=== PATIENT | male | born 1955 | race Caucasian/White ===

== ENCOUNTER 2020-09-22 07:38 | Day surgery (SDC) | payer MEDICARE, OTHER ==
[~2020-09-22] VITALS: Ht 167.6 cm; Wt 87.2 kg
[~2020-09-22 07:38] MED LIST: CHOLESTEROL MED; Flonase 0.05% N16 GM; IBUP800 PO; NAPR500; OXYACE5T PO; Pravachol40 MG; Prinivil10 MG
== END 2020-09-22 09:34 | disposition home or self-care (01) ==
LOC: ORSCSDS 07:38
PROVIDERS: Internal Medicine Gastroenterology
PROC: 0DBH8ZX Excision of Cecum, Via Natural or Artificial Opening Endoscopic, Diagnostic (ICD-10-PCS; principal; 2020-09-22 09:00)
DX: Z12.11 Encounter for screening for malignant neoplasm of colon (principal); Z86.010 Personal history of colon polyps; D12.0 Benign neoplasm of cecum; K64.8 Other hemorrhoids; K57.30 Diverticulosis of large intestine without perforation or abscess without bleeding; Z79.899 Other long term (current) drug therapy
CPT/HCPCS: 88305; J2704; J7120

== ENCOUNTER 2024-04-17 09:02 | Day surgery (SDC) | payer OTHER ==
[~2024-04-17] VITALS: Ht 167.6 cm; Wt 179.2 kg
[~2024-04-17 09:02] MED LIST changes: +Lactated Ringer's 1,000 ML IV ONE; +propofoL 50 ML IV ONE
[2024-04-17] MEDS ORDERED: Lactated Ringer's 1,000 ML IV ONE (10:13)
[2024-04-17 11:48] VITALS: BP 114/73
== END 2024-04-17 11:44 | disposition home or self-care (01) ==
LOC: ORSCSDS 09:02
PROVIDERS: Internal Medicine Gastroenterology
PROC: 0DJD8ZZ Inspection of Lower Intestinal Tract, Via Natural or Artificial Opening Endoscopic (ICD-10-PCS; principal; 2024-04-17 10:30)
DX: Z12.11 Encounter for screening for malignant neoplasm of colon (principal); Z86.0101 Personal history of adenomatous and serrated colon polyps; K64.8 Other hemorrhoids; K57.30 Diverticulosis of large intestine without perforation or abscess without bleeding; E78.5 Hyperlipidemia, unspecified; Z79.899 Other long term (current) drug therapy
CPT/HCPCS: J2704; J7120